=== PATIENT | male | born 1995 | race Caucasian/White ===

== ENCOUNTER 2018-04-25 22:05 | Emergency (ER) | payer BC ==
[2018-04-25 22:10] VITALS: BP 148/88
--- NOTE | 2018-04-25 22:47 | EDPHY ---
H & P Smoking Status: Never smoked Time Seen by Provider: 04/25/18 22:41 HPI/ROS: CHIEF COMPLAINT: Dog bite to the lip HISTORY OF PRESENT ILLNESS: Patient is 22-year-old male who was at a friend's house when his friend's dog bit him on the lip. He states that the bite was provoked by him getting close to the dog. Patient reports that the dog's immunizations are up-to-date including up-to-date rabies. REVIEW OF SYSTEMS: Constitutional: No fever, no chills. Eyes: No discharge. ENT: No sore throat. Cardiovascular: No chest pain, no palpitations. Respiratory: No cough, no shortness of breath. Gastrointestinal: No abdominal pain, no vomiting. Genitourinary: No hematuria. Musculoskeletal: No back pain. Skin: No rashes. Neurological: No headache. (Raghavendra Ferrera) Physical Exam: General Appearance: Alert and no distress. Eyes: Pupils equal and round no injection. Respiratory: Chest is nontender, lungs are clear to auscultation. Cardiac: regular rate and rhythm. Gastrointestinal: Abdomen is soft and nontender, no masses, bowel sounds normal. Musculoskeletal: Neck is supple and nontender. Extremities have full range of motion and are nontender. Skin: No rashes. 1 cm vertical laceration on the right upper lip through the vermilion border. The laceration is not through and through. Additionally there is a superficial laceration in the left upper vermilion border (Raghavendra Ferrera) Constitutional: Initial Vital Signs Temperature (C) 36.6 C 04/25/18 22:07 Heart Rate 83 04/25/18 22:07 Respiratory Rate 16 04/25/18 22:07 Blood Pressure 148/88 H 04/25/18 22:07 O2 Sat (%) 97 04/25/18 22:07 O2 Delivery Mode Room Air Allergies/Adverse Reactions: bee venom protein (honey bee) Allergy (Verified 04/25/18 22:08) Home Medications: Medication Instructions Recorded Amoxicillin/Clavulanate Pot 875 mg PO BID #10 tab 04/25/18 [Augmentin 875 MG TAB (*)] Medical Decision Making Procedures: Procedure: Laceration repair. Verbal consent was obtained from the patient. The lip laceration on the right upper vermilion border was anesthetized in the usual fashion. The wound was irrigated, draped and explored. There were no deep structures involved. No tendon injury was identified. The wound was repaired with 6.0 nylon. The wound repair was well approximated with 4 6.0 simple sutures. The procedure was performed by myself. (Raghavendra Ferrera) ED Course/Re-evaluation: Patient here with dog bite to the upper lip. Laceration was repaired without complication. He was started on Augmentin after being thoroughly irrigated. Indications for return before suture removal were discussed. (Raghavendra Ferrera) PHYSICIAN DOCUMENTATION: The patient was evaluated and managed by the Physician Devulcanizer Loader. My co- signature indicates that I have reviewed this chart and I agree with the findings and plan of care as documented. I am the secondary supervising physician. (Jacquie Garcia) - Data Points Medications Given: Discontinued Medications Amoxicillin/Clavulanate Potassium (Augmentin 875mg) 875 mg PO EDNOW ONE PRN Reason: Protocol Stop: 04/25/18 22:48 Last Admin: 04/25/18 23:07 Dose: 875 mg Departure - Departure Disposition: Home, Routine, Self-Care Clinical Impression: Dog bite of vermilion of upper lip Condition: Good Instructions: Animal Bite (ED) Additional Instructions: Follow-up in 5-6 days for suture removed Referrals: NONE *PRIMARY CARE P,. [Primary Care Provider] - As per Instructions [facility],. [Clinic] - As per Instructions Prescriptions: Amoxicillin/Clavulanate Pot [Augmentin 875 MG TAB (*)] 875 mg PO BID #10 tab
[2018-04-25] MEDS: AMOXICILLIN/CLAVULANATE POT 875/125 MG TAB PO ONE (23:07)
== END 2018-04-26 00:02 | disposition home or self-care (01) ==
DX: S01.511A Laceration without foreign body of lip, initial encounter (principal); W54.0XXA Bitten by dog, initial encounter; Y92.009 Unspecified place in unspecified non-institutional (private) residence as the place of occurrence of the external cause

== ENCOUNTER 2019-01-31 07:15 | Emergency (ER) | payer OTHER, BC | END 2019-01-31 08:06 | disposition home or self-care (01) ==